=== PATIENT | female | born 1975 | race Caucasian/White ===

== ENCOUNTER 2019-12-08 21:11 | Emergency (ER) | payer OTHER ==
[~2019-12-08] VITALS: Ht 175.2 cm; Wt 159.1 kg
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
[2019-12-08] MEDS ORDERED: IBUPROFEN 800 MG (MOTRIN) TAB PO STA (22:20)
[2019-12-08] MEDS ORDERED: IBUP-1780 PO (22:24)
[2019-12-08 22:29] VITALS: BP 156/98
== END 2019-12-08 22:29 | disposition home or self-care (01) ==
LOC: ER FS 21:14
DX: S39.012A Strain of muscle, fascia and tendon of lower back, initial encounter (principal); M25.551 Pain in right hip; M25.552 Pain in left hip; M25.511 Pain in right shoulder; M25.512 Pain in left shoulder; I10 Essential (primary) hypertension; R40.2142 Coma scale, eyes open, spontaneous, at arrival to emergency department; R40.2252 Coma scale, best verbal response, oriented, at arrival to emergency department; R40.2362 Coma scale, best motor response, obeys commands, at arrival to emergency department; V89.2XXA Person injured in unspecified motor-vehicle accident, traffic, initial encounter; Y92.410 Unspecified street and highway as the place of occurrence of the external cause
CPT/HCPCS: 99283

== ENCOUNTER → 2020-07-09 | Outpatient (CLI) | payer OTHER ==
[~2020-07-09] MED LIST: IBUP-1780 PO
== END ==
LOC: RAD 09:28
PROVIDERS: ATTEND Nurse Practitioner Family
DX: M25.561 Pain in right knee (principal)

== ENCOUNTER 2023-07-14 22:43 | Emergency (ER) | payer MEDICAID ==
[~2023-07-14] VITALS: Ht 175.3 cm; Wt 154.2 kg
[2023-07-14 22:50] VITALS: BP 148/86
[2023-07-14] MEDS ORDERED: HYDROcodone/ACETAMINOPHEN 5 MG/325 MG TABLET PO ONE (23:00)
--- NOTE | 2023-07-14 23:03 | ED Lower Extremity ---
General Chief Complaint: Lower Extremity Stated Complaint: FELL THROUGH FLOOR,R LEG PAIN,LIGHTHEADED Source: patient Exam Limitations: no limitations History of Present Illness Date Seen by Provider: Jul 14, 2023 Time Seen by Provider: 22:50 Initial Comments 47-year-old female presents to the emergency department today for right knee a nkle and foot pain. She was walking in her home and stepped on a weak spot on the floor when the floor broke. Her left foot and leg are what actually went through the floor in her right leg hurts more than the left secondary to helping her put sure about of the hole that was created. She denies any left leg pain. She has been able to bear weight but states she has significant pain with doing so. The majority of her pain is posterior to her right knee, right ankle and right foot. All other systems reviewed and negative except documented per HPI. Voice recognition software was used to help create this chart Allergies and Home Medications Allergies Coded Allergies: No Known Drug Allergies (Unverified , 12/08/19) Patient Home Medication List Home Medication List Reviewed: Yes Ibuprofen (Ibuprofen) 800 Mg Tablet, 800 MG PO Q8H PRN for PAIN Prescribed by: ONESIMO ALVA on 12/08/194 Review of Systems Constitutional: see HPI Past Czigbqq-Prkwxd-Ewpflf Hx Patient Social History Tobacco Use?: No Use of E-Cig and/or Vaping dev: No Substance use?: No Alcohol Use?: No Past Medical History Surgeries: Yes (Bladder Surgery) Section Respiratory: No Cardiac: Yes Hypertension Neurological: No Genitourinary: No Gastrointestinal: No Musculoskeletal: No Endocrine: Yes Diabetes, Non-Insulin dep HEENT: No Cancer: No Psychosocial: No Integumentary: No Physical Exam Vital Signs Vital Signs - First Documented 07/14/23 22:50 Temp 36.6 Pulse 101 Resp 22 B/P (MAP) 148/86 (106) Pulse Ox 95 O2 Delivery Room Air Capillary Refill : Height, Weight, BMI Height: '" Weight: lbs. oz. kg; 51.00 BMI Method: General Appearance: WD/WN, no apparent distress HEENT: normal ENT inspection, pharynx normal Neck: non-tender, supple, normal inspection Cardiovascular: regular rate, rhythm, no murmur Respiratory: chest non-tender, lungs clear, normal breath sounds, no respiratory distress, no accessory muscle use Gastrointestinal: normal bowel sounds, non tender, soft Hips: bilateral hip non-tender, bilateral hip normal inspection, bilateral hip normal range of motion Legs: right leg other (Tenderness palpation right posterior popliteal region. Some mild right ankle swelling that extends into the midfoot. Neurovascular and sensory intact.) Ankles: left ankle non-tender, left ankle normal inspection, left ankle normal range of motion; right ankle other (As described above) Feet: left foot non-tender, left foot normal inspection, left foot normal range of motion; right foot other (As described above) Neurologic/Tendon: normal sensation, normal motor functions, normal tendon functions Neurologic/Psychiatric: alert, oriented x 3 Skin: warm/dry, other (Abrasions to the left howard as described above) Progress/Results/Core Measures Results/Orders My Orders Orders - ERWIN LUCIANO DO Foot 3 View Right (07/14/23 22:59) Knee 3 View Right (07/14/23 22:59) Ankle 3 View Right (07/14/23 22:59) Hydrocodone/Apap 5/325 Tablet (Hydrocod (07/14/23 23:00) Medications Given in ED Current Medications Medications Dose Ordered Sig/Vipul Route Start Time Stop Time Status Last Admin Dose Admin Acetaminophen/ Hydrocodone Bitart 1 ea ONCE ONCE PO 07/14/23 23:00 07/14/23 23:01 DC 07/14/23 23:04 1 EA Vital Signs/I&O 07/14/23 22:50 Temp 36.6 Pulse 101 Resp 22 B/P (MAP) 148/86 (106) Pulse Ox 95 O2 Delivery Room Air Departure Communication (Admissions) Patient is hemodynamically stable, neurovascular and sensory intact. X-rays show fracture of the base of second metatarsal that is displaced. There may be a subtle fracture of the medial cuneiform as well however it is hard to discern on this plain film. Regardless a posterior short leg splint was placed. X-rays of her knee and ankle are negative. I have independently reviewed all x-rays. She is discharged in stable condition with close follow-up. Impression Primary Impression: Fracture of second metatarsal bone of right foot Qualified Codes: S92.321A - Displaced fracture of second metatarsal bone, right foot, initial encounter for closed fracture Disposition: 01 HOME, SELF-CARE Condition: Stable Departure-Patient Inst. Referrals: MARIO PHILLIPS MD (PCP) Primary Care Physician MALIA BOSTON MD Patient Instructions: Foot Fracture ED, Splint Care ED Add. Discharge Instructions: Keep the splint clean, dry. Do not bear weight until cleared by orthopedic surgery, use crutches. Take the pain medication as prescribed as needed. Do not drive or make important decisions while taking this as it may make you drowsy. You may also want to use stool softeners while taking it as it can cause constipation. Please call Dr. Boston's office to schedule a follow-up appointment for definitive casting and further treatment recommendations. Return to the emergency department for any severe concerns. All discharge instructions reviewed with patient and/or family. Voiced understanding. Scripts Hydrocodone/Acetaminophen (Hydrocodone-Acetamin 5-325 mg) 5 Mg-325 Mg Tablet 1 TAB PO Q4H PRN for PAIN-MODERATE (5-7) for 3 Days, #12 TAB Prov: ERWIN LUCIANO DO 07/14/23 ERWIN LUCIANO DO Jul 14, 2023 23:03
[2023-07-14] MEDS ORDERED: ACHD5005 PO (23:33)
--- NOTE | 2023-07-15 06:15 | Diagnostic Imaging Report ---
EXAMINATION: Right ankle radiograph EXAM DATE: 07/14/2023 11:31 PM COMPARISON: None available. HISTORY: Right ankle pain TECHNIQUE: 3 views FINDINGS: There is no acute fracture, dislocation, or destructive osseous process. Chronic avulsion fracture or secondary ossicle along the tip of the lateral malleolus. The joint spaces are normal. The soft tissues are normal. IMPRESSION: 1. No acute osseous abnormality. Dictated by: Dictated on workstation # [id number]
--- NOTE | 2023-07-15 10:38 | Diagnostic Imaging Report ---
EXAMINATION: Right foot radiograph EXAM DATE: 07/14/2023 11:31 PM COMPARISON: None available. HISTORY: Right foot pain TECHNIQUE: 3 views FINDINGS: There is no acute fracture, dislocation, or destructive osseous process. The joint spaces are normal. The soft tissues are normal. IMPRESSION: 1. No acute osseous abnormality. Dictated by: Dictated on workstation # [id number]
--- NOTE | 2023-07-15 10:38 | Diagnostic Imaging Report ---
EXAMINATION: Right knee radiograph EXAM DATE: 07/14/2023 11:31 PM COMPARISON: None available. HISTORY: Right knee pain after fall TECHNIQUE: 3 views FINDINGS: There is no acute fracture, dislocation, or destructive osseous process. There is mild osseous demineralization. Mild degenerative joint space narrowing with small osteophytes. The soft tissues are normal. IMPRESSION: 1. No acute osseous abnormality. Dictated by: Dictated on workstation # [id number]
== END 2023-07-14 23:47 | disposition home or self-care (01) ==
LOC: EDUNIT# 22:43 → ER FS 22:46
DX: S92.321A Displaced fracture of second metatarsal bone, right foot, initial encounter for closed fracture (principal); W17.2XXA Fall into hole, initial encounter; Y93.01 Activity, walking, marching and hiking; Y92.009 Unspecified place in unspecified non-institutional (private) residence as the place of occurrence of the external cause
CPT/HCPCS: 29515; 73562; 73610; 73630